=== PATIENT | male | born 1995 | race Caucasian/White ===

== ENCOUNTER 2017-01-30 04:07 | Emergency (ER) | payer OTHER ==
[~2017-01-30] VITALS: Ht 180.3 cm; Wt 69.0 kg
[2017-01-30 04:14] VITALS: TEMP 36.6; Ht 180.3 cm; Wt 69.0 kg
[2017-01-30] MEDS ORDERED: ONDANSETRON INJ 2 MG/ML 2 ML VIAL IV STA (04:22)
[2017-01-30] MEDS ORDERED: SODIUM CHLORIDE 0.9% 1000ML 1,000 ML IV STA (04:22)
--- NOTE | 2017-01-30 04:26 | EMERGENCY ROOM VISIT NOTE ---
History Report prepared by Phi: Cuate Landin Under the Supervision of: Dr. Taras Barker D.O. First contact with patient: 04:17 Chief Complaint: ABDOMINAL PAIN Stated Complaint: SEVERE STOMACH PAIN History of Present Illness The patient is a 22 year old male who presents to the Emergency Room with complaints of worsening epigastric abdominal pain that began yesterday. He rates his pain an 8/10 in severity. He is currently experiencing some nausea. He denies any fevers, vomiting, diarrhea, or abnormal urinary symptoms. He denies any pain radiation to other areas. He also denies any heavy alcohol consumption. He has not had any abdominal surgeries. Source of History: patient Onset: yesterday Position: abdomen (epigastrium) Symptom Intensity: 8/10 Quality: sharp Timing: worsening Associated Symptoms: + nausea, No fevers, No vomiting, No diarrhea, No urinary symptoms Review of Systems See HPI for pertinent positives and negatives. A total of ten systems were reviewed and were otherwise negative. Past Medical & Surgical Medical Problems: (1) No Known Active Medical Problems Family History Patient reports no known family medical history. Social History Smoking Status: Never Smoker Smokeless Tobacco Use: No Drug Use: none Marital Status: single Housing Status: lives with roommate Occupation Status: student Current/Historical Medications Scheduled PRN Calcium Carbonate (Tums), 1-2 TABS PO DIRECTED PRN for Indigestion Ibuprofen (Advil), 200-600 MG PO Q4H PRN for Pain Allergies Coded Allergies: POLLEN (Verified Allergy, Intermediate, SNEEZING, ITCHY EYES, RUNNY NOSE, 01/30/17) Physical Exam Vital Signs Date Time Temp Pulse Resp B/P (MAP) Pulse Ox O2 Delivery O2 Flow Rate FiO2 01/30/17 05:31 132/76 01/30/17 05:27 66 19 100 01/30/17 05:12 63 98 01/30/17 05:09 136/72 01/30/17 04:57 61 12 100 01/30/17 04:52 60 19 100 Room Air 01/30/17 04:45 54 01/30/17 04:41 130/64 01/30/17 04:14 36.6 79 18 120/68 98 Room Air Physical Exam GENERAL: Awake, alert, well-appearing, in no distress HENT: Normocephalic, atraumatic. Oropharynx unremarkable. EYES: Normal conjunctiva. Sclera non-icteric. NECK: Supple. No nuchal rigidity. FROM. No JVD. RESPIRATORY: Clear to auscultation. CARDIAC: Regular rate, normal rhythm. Extremities warm and well perfused. Pulses equal. ABDOMEN: Soft, non-distended. Mild epigastric tenderness to palpation. No rebound or guarding. No masses. RECTAL: Deferred. MUSCULOSKELETAL: Chest examination reveals no tenderness. The back is symmetrical on inspection without obvious abnormality. There is no CVA tenderness to palpation. No joint edema. LOWER EXTREMITIES: Calves are equal size bilaterally and non-tender. No edema. No discoloration. NEURO: Normal sensorium. No sensory or motor deficits noted. SKIN: No rash or jaundice noted. Medical Decision & Procedures ER Provider Diagnostic Interpretation: Radiology results as stated below per my review and radiologist interpretation: CT ABDOMEN & PELVIS: Liver, gallbladder, spleen, pancreas, adrenal glands, and kidneys are unremarkable. No bowel obstruction or diverticulitis. The appendix is not visualized. Urinary bladder and prostate are unremarkable. There are no acute osseous findings. Radiologist: Eliot Chambers M.D. Laboratory Results 01/30/17 04:20 Red Blood Count 5.49, Mean Corpuscular Volume 82.9, Mean Corpuscular Hemoglobin 30.6, Mean Corpuscular Hemoglobin Concent 36.9, Mean Platelet Volume 9.6, Neutrophils (%) (Auto) 53.9, Lymphocytes (%) (Auto) 34.6, Monocytes (%) (Auto) 8.5, Eosinophils (%) (Auto) 2.5, Basophils (%) (Auto) 0.3, Neutrophils # (Auto) 4.66, Lymphocytes # (Auto) 3.00, Monocytes # (Auto) 0.74, Eosinophils # (Auto) 0.22, Basophils # (Auto) 0.03 01/30/17 04:20 Test 01/30/17 04:20 01/30/17 04:35 White Blood Count 8.67 K/uL (4.8-10.8) Red Blood Count 5.49 M/uL (4.7-6.1) Hemoglobin 16.8 g/dL (14.0-18.0) Hematocrit 45.5 % (42-52) Mean Corpuscular Volume 82.9 fL (80-100) Mean Corpuscular Hemoglobin 30.6 pg (25-34) Mean Corpuscular Hemoglobin Concent 36.9 g/dl (32-36) Platelet Count 241 K/uL (130-400) Mean Platelet Volume 9.6 fL (7.4-10.4) Neutrophils (%) (Auto) 53.9 % Lymphocytes (%) (Auto) 34.6 % Monocytes (%) (Auto) 8.5 % Eosinophils (%) (Auto) 2.5 % Basophils (%) (Auto) 0.3 % Neutrophils # (Auto) 4.66 K/uL (1.4-6.5) Lymphocytes # (Auto) 3.00 K/uL (1.2-3.4) Monocytes # (Auto) 0.74 K/uL (0.11-0.59) Eosinophils # (Auto) 0.22 K/uL (0-0.5) Basophils # (Auto) 0.03 K/uL (0-0.2) RDW Standard Deviation 36.9 fL (36.4-46.3) RDW Coefficient of Variation 12.3 % (11.5-14.5) Immature Granulocyte % (Auto) 0.2 % Immature Granulocyte # (Auto) 0.02 K/uL (0.00-0.02) Anion Gap 6.0 mmol/L (3-11) Est Creatinine Clear Calc Drug Dose 94.2 ml/min Estimated GFR () 98.9 Estimated GFR (Non- 85.3 BUN/Creatinine Ratio 8.9 (10-20) Calcium Level 9.3 mg/dl (8.5-10.1) Total Bilirubin 0.6 mg/dl (0.2-1) Direct Bilirubin 0.1 mg/dl (0-0.2) Aspartate Amino Transf (AST/SGOT) 15 U/L (15-37) Alanine Aminotransferase (ALT/SGPT) 22 U/L (12-78) Alkaline Phosphatase 81 U/L (45-117) Total Protein 7.2 gm/dl (6.4-8.2) Albumin 4.1 gm/dl (3.4-5.0) Lipase 201 U/L (73-393) Urine Color YELLOW Urine Appearance CLEAR (CLEAR) Urine pH 5.5 (4.5-7.5) Urine Specific Ringle 1.023 (1.000-1.030) Urine Protein NEG (NEG) Urine Glucose (UA) NEG (NEG) Urine Ketones NEG (NEG) Urine Occult Blood NEG (NEG) Urine Nitrite NEG (NEG) Urine Bilirubin NEG (NEG) Urine Urobilinogen NEG (NEG) Urine Leukocyte Esterase NEG (NEG) Laboratory results reviewed by me Medications Administered Medications (Trade) Dose Ordered Sig/Yun Route Start Time Stop Time Status Last Admin Dose Admin Sodium Chloride 1,000 ml @ 999 mls/hr Q1H1M STAT IV 01/30/17 04:22 01/30/17 05:22 DC 01/30/17 04:30 999 MLS/HR Ondansetron HCl (Zofran Inj) 4 mg NOW STAT IV 01/30/17 04:22 01/30/17 04:23 DC 01/30/17 04:30 4 MG ED Course 0417: The patient was evaluated in room A3. A complete history and physical exam was performed. 0422: Ordered Zofran Inj 4 mg IV, Sodium Chloride 1000 ml @ 999 mls/hr IV 0550: I reevaluated the patient. He is feeling better and without abdominal discomfort. Discussed results and discharge instructions: He verbalized understanding and agreement. The patient is ready for discharge. Medical Decision Differential diagnosis: Etiologies such as appendicitis, diverticulitis, PUD, biliary pathology, UTI, pancreatitis, obstruction, mesenteric ischemia, aortic pathology, infections, inflammatory bowel disease, renal colic, as well as others were entertained. Repeat examination at 5:50 AM the patient's resting in no distress is no significant abdominal pain at this time is afebrile his white count is normal CT was unrevealing however did not show his appendix. I do not suspect acute appendicitis at this time. I have discussed the evaluation with the patient and stated that this in fact still could be early appendicitis he is to return for increased pain right lower quadrant pain anorexia fever or for any concerns. Medication Reconcilliation Current Medication List: was personally reviewed by me Blood Pressure Screening Patient's blood pressure: Normal blood pressure Blood pressure disposition: Did not require urgent referral Impression Primary Impression: Left upper quadrant pain Scribe Attestation The scribe's documentation has been prepared under my direction and personally reviewed by me in its entirety. I confirm that the note above accurately reflects all work, treatment, procedures, and medical decision making performed by me. Departure Information Dispostion Home / Self-Care Forms HOME CARE DOCUMENTATION FORM, IMPORTANT VISIT INFORMATION Patient Instructions Abdominal Pain - [facility], [facility]
[2017-01-30 04:32] LABS: BASO % 0.3 %; BASO ABS # 0.03 K/uL (0-0.2); COMPLETE YES; EOS % 2.5 %; HEMATOCRIT 45.5 % (42-52); IG% 0.2 %; LYMPH % 34.6 %; MEAN CELL VOLUME 82.9 fL (80-100); MEAN CORPUSCULAR HEMOGLOBIN 30.6 pg (25-34); MEAN CORPUSCULAR HGB CONC 36.9 g/dl (32-36); MEAN PLATELET VOLUME 9.6 fL (7.4-10.4); MONO % 8.5 %; NEUT % 53.9 %; PLATELET COUNT 241 K/uL (130-400); RED BLOOD COUNT 5.49 M/uL (4.7-6.1); WHITE BLOOD COUNT 8.67 K/uL (4.8-10.8)
[2017-01-30] MEDS ORDERED: IBUP-1050 PO (04:32)
[2017-01-30] MEDS ORDERED: CALC500C3 PO (04:32)
[2017-01-30] MEDS ORDERED: OPTIRAY 320 IV PRN (04:45)
[2017-01-30 04:49] LABS: BUN/CREATININE RATIO 8.9 (10-20); CALCIUM 9.3 mg/dl (8.5-10.1); CREATININE 1.2 mg/dl (0.60-1.40); POTASSIUM 3.4 mmol/L (3.5-5.1)
[2017-01-30 04:58] LABS: URINE APPEARANCE CLEAR (CLEAR); URINE BILIRUBIN NEG (NEG); URINE COLOR YELLOW; URINE NITRITE NEG (NEG); URINE PH 5.5 (4.5-7.5); URINE SPECIFIC GRAVITY 1.023 (1.000-1.030); UROBILINOGEN NEG (NEG); ZZUR CULT IF INDIC CLEAN CATCH NO
[2017-01-30 05:09] LABS: MANUAL MICROSCOPIC REQUIRED? NO; REVIEW REQ? NO
[2017-01-30 05:27] VITALS: PULSE 66; O2SAT 100
[2017-01-30 05:31] VITALS: BP 132/76
--- NOTE | 2017-01-30 07:06 | DIAGNOSTIC IMAGING REPORT ---
ABD/PELVIS IV CONTRAST ONLY CT DOSE: 267.26 mGy.cm HISTORY: Pain pain TECHNIQUE: Multiaxial CT images of the abdomen and pelvis were performed following the use of intravenous contrast. A dose lowering technique was utilized adhering to the principles of ALARA. COMPARISON STUDY: None. FINDINGS: The lung bases are clear. The liver, spleen, gallbladder, pancreas, kidneys, and adrenal glands are within normal limits. No bowel wall thickening or obstruction. The pelvic organs are unremarkable. No suspicious lytic or blastic osseous lesions. Several fluid-filled loops of bowel within the low pelvis. IMPRESSION: Findings suggesting a mild enteritis. No evidence for abscess collection or obstruction. Mild nonobstructive reactive ileus. The above report was generated using voice recognition software. It may contain grammatical, syntax or spelling errors. Electronically signed by: Duncan Pino M.D. 01/30/2017 7:05 AM Dictated Date/Time: 01/30/2017 7:04 AM
== END 2017-01-30 05:56 | disposition home or self-care (01) ==
LOC: C.EDB 04:09 → C.EDA 05:56
DX: R10.12 Left upper quadrant pain (principal)